=== PATIENT | male | born 1960 | race Two or more races ===

== ENCOUNTER 2016-12-16 11:17 | Emergency (ER) | payer OTHER ==
[2016-12-16 11:22] VITALS: BP 136/70; PULSE 96; TEMP 97.9; BMI 35.6
--- NOTE | 2016-12-16 13:31 | PDOC ---
History of Present Illness - General Chief Complaint: Cold Symptoms Stated Complaint: SORE THROAT, COUGH Time Seen by Provider: 12/16/16 11:38 History Source: Patient - History of Present Illness Timing/Duration: reports: other Associated Symptoms: reports: cough. denies: fever/chills, shortness of breath , sore throat, wheezing Past History - Past Medical History Allergies/Adverse Reactions: Allergies Allergy/AdvReac Type Severity Reaction Status Date / Time No Known Allergies Allergy Verified 12/16/16 11:22 Home Medications: Ambulatory Orders Benzonatate [Tessalon Pearls -] 100 mg PO TID #21 capsule 12/16/16 Hypercholesterolemia: Yes - Psycho/Social/Smoking Cessation Hx Suicidal Ideation: No Smoking History: Never smoked Information on smoking cessation initiated: No Hx Alcohol Use: No Drug/Substance Use Hx: No Substance Use Type: None Review of Systems - Review of Systems Constitutional: No: Chills, Fever, Unintentional Wgt. Loss Respiratory: Yes: Cough. No: Shortness of Breath, Wheezing, Hemoptysis Cardiac (ROS): No: Chest Pain *Physical Exam - Vital Signs Last Vital Signs Temp Pulse Resp BP Pulse Ox 97.9 F 96 H 18 136/70 99 12/16/16 11:20 12/16/16 11:20 12/16/16 11:20 12/16/16 11:20 12/16/16 11:20 - Physical Exam General Appearance: Yes: Appropriately Dressed. No: Apparent Distress HEENT: positive: Normal Voice Neck: positive: Supple. negative: Lymphadenopathy (R), Lymphadenopathy (L) Respiratory/Chest: positive: Lungs Clear, Normal Breath Sounds. negative: Respiratory Distress Cardiovascular: positive: Regular Rate, S1, S2 Integumentary: positive: Dry, Warm Neurologic: positive: Fully Oriented, Alert, Normal Mood/Affect ED Treatment Course - RADIOLOGY Radiology Studies Ordered: Category Date Time Status CHEST PA & LAT [RAD] Stat Radiology 12/16/16 13:26 Ordered Medical Decision Making - Medical Decision Making 12/16/16 13:27 56-year-old male, history of hyperlipidemia, here with cough 4 months. States cough mostly nonproductive, but over the past several days has been coughing up yellow sputum. Denies any shortness of breath, hemoptysis, night sweat, weight loss, fever or chills. No history of tobacco use and no exposure to active TB. Denies recent travel. For unclear reasons. Has not been to his see his doctor for evaluation. Not taking anything for his cough. Patient well- appearing and stable with unremarkable exam. Patient requesting chest x-ray today though aware that there is a very low chance of an acute process such as pneumonia. Etiology of cough unclear, ?viral, no h/o gasritis/GERD and not on a MIKA. Anticipate dc with Reilly Floyd and encourage PMD follow-up 12/16/16 13:29 12/16/16 13:30 12/16/16 13:57 CXR neg. Pt discharged to f/u with PMD 12/16/16 13:58 *DC/Admit/Observation/Transfer Diagnosis at time of Disposition: Cough - Discharge Dispostion Disposition: HOME Condition at time of disposition: Good - Prescriptions Prescriptions: Benzonatate [Tessalon Pearls -] 100 mg PO TID #21 capsule - Referrals Referrals: Juan José Sykes MD [Primary Care Provider] - - Patient Instructions Printed Discharge Instructions: Cough Additional Instructions: Take meds as directed and follow up with your PMD if cough persists
== END 2016-12-16 14:05 | disposition home or self-care (01) ==
LOC: JERFT 11:17
DX: R05 Cough (principal)
CPT/HCPCS: 71020-TC; 99281-25

== ENCOUNTER 2017-03-29 15:56 | Emergency (ER) | payer OTHER ==
[2017-03-29 16:20] VITALS: BMI 36.0
--- NOTE | 2017-03-29 17:47 | PDOC ---
History of Present Illness - General Chief Complaint: Shortness of Breath Stated Complaint: ACID REFLUX Time Seen by Provider: 03/29/17 17:33 History Source: Patient - History of Present Illness Presenting Symptoms: Chest Pain Timing/Duration: reports: intermittent Severity/Quality: reports: mild Past History - Past Medical History Allergies/Adverse Reactions: Allergies Allergy/AdvReac Type Severity Reaction Status Date / Time No Known Allergies Allergy Verified 03/29/17 16:16 Home Medications: Ambulatory Orders Benzonatate [Tessalon Pearls -] 100 mg PO TID #21 capsule 12/16/16 Hypercholesterolemia: Yes - Psycho/Social/Smoking Cessation Hx Suicidal Ideation: No Smoking History: Never smoked Hx Alcohol Use: No Drug/Substance Use Hx: No Substance Use Type: None Review of Systems - Review of Systems Constitutional: No: Fever Respiratory: Yes: Shortness of Breath. No: Cough Cardiac (ROS): Yes: Chest Pain. No: Lightheadedness, Palpitations, Syncope ABD/GI: No: Constipated, Diarrhea, Nausea, Vomiting *Physical Exam - Vital Signs Last Vital Signs Temp Pulse Resp BP Pulse Ox 98 F 73 19 136/90 99 03/29/17 16:17 03/29/17 16:17 03/29/17 16:17 03/29/17 16:17 03/29/17 16:17 - Physical Exam General Appearance: Yes: Appropriately Dressed. No: Apparent Distress HEENT: positive: Normal Voice Neck: positive: Supple Respiratory/Chest: positive: Lungs Clear, Normal Breath Sounds. negative: Respiratory Distress Cardiovascular: positive: Regular Rate, S1, S2 Gastrointestinal/Abdominal: positive: Tender (minimally to LUQ), Soft Extremity: positive: Normal Inspection Integumentary: positive: Dry, Warm Neurologic: positive: Fully Oriented, Alert, Normal Mood/Affect ED Treatment Course - RADIOLOGY Radiology Studies Ordered: Category Date Time Status CHEST X-RAY PORTABLE* [RAD] Stat Radiology 03/29/17 17:49 Taken - Medications Given in the ED: ED Medications Discontinued Medications Generic Name Dose Route Start Last Admin Trade Name Freq PRN Reason Stop Dose Admin Al Hydroxide/Mg Hydroxide 30 ml 03/29/17 17:50 03/29/17 18:04 Mylanta Suspension - PO 03/29/17 17:51 30 ml ONCE ONE Administration Famotidine/Sodium Chloride 50 mls @ 100 mls/hr 03/29/17 17:50 03/29/17 18:05 Pepcid 20 Mg Premixed Ivpb - IVPB 03/29/17 18:19 100 mls/hr ONCE ONE Administration Medical Decision Making - Medical Decision Making 03/29/17 17:41 56-year-old male history of hyperlipidemia, gastritis, here c/o CP and shortness of breath. Patient states symptoms started approximately 2 hours ago. Described as pressure-like pain to mid and L chest and felt like he couldn't breathe. States symptoms is intermittent with no exacerbating or alleviating factors. Had similar symptoms 2 weeks ago that resolved on its own and did not come to ED as per patient. Denies any diaphoresis, palpitations, nausea, vomiting, leg pain or swelling. States he had a negative stress test last year at [facility]. No obvious RF for DVT/PE See exam CP w/ SOB today Neg stress last yr per pt Not great story for ACS, ?GI etiology given ttp to LUQ on exam (does have h/o gastritis-not on meds), less likely PE, dissection or PNA -ekg -cxr -labs -GI cocktail and reassess 03/29/17 17:48 03/29/17 17:48 03/29/17 17:57 03/29/17 18:39 EKG unremarkable as d/w ED attg. Plan is to get serial trop, rpt ekg at some point and reassess after GI cocktail 03/29/17 19:00 Signed out to CELSA Medina
[2017-03-29] MEDS ORDERED: FAMOTIDINE 20 MG/50 ML IVPB 50 ML IVPB ONE ×2 (17:50→18:03)
[2017-03-29] MEDS ORDERED: MAG HYDROX/AL HYDROX/SIMETH 355 ML ORAL.SUSP PO ONE (17:50)
[2017-03-29] MEDS ORDERED: MAG HYDROX/AL HYDROX/SIMETH 30 ML UNIT-DOSE CUP ONE (18:03)
[2017-03-29 18:53] LABS: BASOPHIL 0.7 % (0-2.0); EOSINOPHIL 1.8 % (0-4.5); MCH 25.4 pg (25.7-33.7); MEAN CELL VOLUME 76.8 fl (80-96); MEAN PLT VOLUME 8.6 fl (7.5-11.1); NEUTROPHILS 66.2 % (42.8-82.8); PLATELET COUNT 227 K/MM3 (134-434); RDW 14.4 % (11.9-15.9); WHITE BLOOD COUNT 8.4 K/mm3 (4.0-10.0)
[2017-03-29 19:03] LABS: ALBUMIN 3.9 g/dl (3.4-5.0); ALK PHOS 72 U/L (45-117); ANION GAP 7 (8-16); BILIRUBIN,TOTAL 0.4 mg/dL (0.2-1.0); CALCIUM 8.5 mg/dL (8.5-10.1); CO2 27 mmol/L (21-32); CPK 239 IU/L (39-308); CREATININE 0.8 mg/dL (0.7-1.3); GLUCOSE,RANDOM 98 mg/dL (74-106); SGOT/AST 21 U/L (15-37); SGPT/ALT 37 U/L (12-78); TOT PROT 7.3 g/dl (6.4-8.2)
[2017-03-29 19:13] LABS: URINE APPEARANCE CLEAR; URINE BILIRUBIN NEGATIVE (NEGATIVE); URINE BLOOD NEGATIVE (NEGATIVE); URINE COLOR STRAW; URINE GLUCOSE (UA) NEGATIVE (NEGATIVE); URINE KETONE NEGATIVE (NEGATIVE); URINE LEUK ESTERASE NEGATIVE (NEGATIVE); URINE NITRITE NEGATIVE (NEGATIVE); URINE PROTEIN NEGATIVE (NEGATIVE); URINE UROBILINOGEN NEGATIVE mg/dL (0.2-1.0)
--- NOTE | 2017-03-29 19:46 | PDOC ---
*Physical Exam - Vital Signs Last Vital Signs Temp Pulse Resp BP Pulse Ox 98 F 73 19 136/90 99 03/29/17 16:17 03/29/17 16:17 03/29/17 16:17 03/29/17 16:17 03/29/17 16:17 Heart Score/ECG Review - History History: Slightly suspicious - Electrocardiogram EKG: Normal - Age Age: 45-65 - Risk Factors Risk Factors Heart Score: Yes Hx Hypercholesterolemia Based on the list above the patient has:: 1-2 risk factors - Troponin Troponin: </= normal limit - Score Heart Score - Total: 2 - ECG Impressions Comment:: 03/29/17 19:48 EKG with no NEREIDA/STDs, no TWIs, intervals wnl, axis wnl ED Treatment Course - LABORATORY CBC & Chemistry Diagram: 03/29/17 18:35 03/29/17 18:35 - ADDITIONAL ORDERS Additional order review: Laboratory Results 03/29/17 03/29/17 19:00 18:35 Sodium 138 Potassium 4.0 Chloride 104 Carbon Dioxide 27 Anion Gap 7 L BUN 16 Creatinine 0.8 Creat Clearance w eGFR > 60 Random Glucose 98 Calcium 8.5 Total Bilirubin 0.4 AST 21 ALT 37 Alkaline Phosphatase 72 Creatine Kinase 239 Total Protein 7.3 Albumin 3.9 Urine Color Straw Urine Appearance Clear Urine pH 6.0 Urine Protein Negative Urine Glucose (UA) Negative Urine Ketones Negative Urine Blood Negative Urine Nitrite Negative Urine Bilirubin Negative Urine Urobilinogen Negative Ur Leukocyte Esterase Negative 03/29/17 18:35 RBC 5.29 MCV 76.8 L MCHC 33.0 RDW 14.4 MPV 8.6 Neutrophils % 66.2 Lymphocytes % 24.3 Monocytes % 7.0 Eosinophils % 1.8 Basophils % 0.7 - Medications Given in the ED: ED Medications Discontinued Medications Generic Name Dose Route Start Last Admin Trade Name Freq PRN Reason Stop Dose Admin Al Hydroxide/Mg Hydroxide 30 ml 03/29/17 17:50 03/29/17 18:04 Mylanta Suspension - PO 03/29/17 17:51 30 ml ONCE ONE Administration Famotidine/Sodium Chloride 50 mls @ 100 mls/hr 03/29/17 17:50 03/29/17 18:05 Pepcid 20 Mg Premixed Ivpb - IVPB 03/29/17 18:19 100 mls/hr ONCE ONE Administration Medical Decision Making - Medical Decision Making 03/29/17 19:49 Agree with PA/EMPLOYMENT CLERK's evaluation, assessment, and plan. 56M with h/o gastritis, HLD presenting with chest pain + SOB, now improved s/p GI meds. Likely gastritis-related. Will r/o ACS with serial troponins and EKGs. - f/u 2nd trop, EKG *DC/Admit/Observation/Transfer Diagnosis at time of Disposition: Chest pain Qualifiers: Chest pain type: other chest pain Qualified Code(s): R07.89 - Other chest pain - Referrals Referrals: Juan José Sykes MD [Primary Care Provider] - - Attestations Physician Attestion: 03/29/17 19:51 I, Dr. Dick Cadena MD, attest that this document has been prepared under my direction and personally reviewed by me in its entirety. I further attest, that it accurately reflects all work, treatment, procedures and medical decision -making performed by me.
[2017-03-29 20:12] LABS: TROPONIN I < 0.02 ng/ml (0.00-0.05)
--- NOTE | 2017-03-29 20:34 | PDOC ---
*Physical Exam - Vital Signs Last Vital Signs Temp Pulse Resp BP Pulse Ox 98 F 73 19 136/90 99 03/29/17 16:17 03/29/17 16:17 03/29/17 16:17 03/29/17 16:17 03/29/17 16:17 - Physical Exam Comments: 03/29/17 19:18 Sign-out received from outgoing ER provider Gilda. Pt interviewed and examined. Ancillary studies reviewed. Awaiting initial troponin. 03/29/17 20:20 First trop negative. Will repeat at 10pm as well as repeat EKG for SHAUNA. 03/29/17 21:08 Patient reassessed. At this time he is sitting comfortably in bed and eating a sandwich. Patient reports feeling better. Awaiting repeat trop. 03/29/17 22:17 Repeat EKG - NSR. Patient continues to be asymptomatic at this time. Advised patient to f/u with primary care doctor and of signs and symptoms for return to ER; patient verbalized understanding and agrees to plan. ED Treatment Course - LABORATORY CBC & Chemistry Diagram: 03/29/17 18:35 03/29/17 18:35 - ADDITIONAL ORDERS Additional order review: Laboratory Results 03/29/17 03/29/17 19:00 18:35 Sodium 138 Potassium 4.0 Chloride 104 Carbon Dioxide 27 Anion Gap 7 L BUN 16 Creatinine 0.8 Creat Clearance w eGFR > 60 Random Glucose 98 Calcium 8.5 Total Bilirubin 0.4 AST 21 ALT 37 Alkaline Phosphatase 72 Creatine Kinase 239 Creatine Kinase Index 0.4 CK-MB (CK-2) 1.126 Troponin I < 0.02 Total Protein 7.3 Albumin 3.9 Urine Color Straw Urine Appearance Clear Urine pH 6.0 Urine Protein Negative Urine Glucose (UA) Negative Urine Ketones Negative Urine Blood Negative Urine Nitrite Negative Urine Bilirubin Negative Urine Urobilinogen Negative Ur Leukocyte Esterase Negative 03/29/17 18:35 RBC 5.29 MCV 76.8 L MCHC 33.0 RDW 14.4 MPV 8.6 Neutrophils % 66.2 Lymphocytes % 24.3 Monocytes % 7.0 Eosinophils % 1.8 Basophils % 0.7 - Medications Given in the ED: ED Medications Discontinued Medications Generic Name Dose Route Start Last Admin Trade Name Freq PRN Reason Stop Dose Admin Al Hydroxide/Mg Hydroxide 30 ml 03/29/17 17:50 08/05/17 18:04 Mylanta Suspension - PO 03/29/17 17:51 30 ml ONCE ONE Administration Famotidine/Sodium Chloride 50 mls @ 100 mls/hr 03/29/17 17:50 03/29/17 18:05 Pepcid 20 Mg Premixed Ivpb - IVPB 03/29/17 18:19 100 mls/hr ONCE ONE Administration *DC/Admit/Observation/Transfer Diagnosis at time of Disposition: Chest pain Qualifiers: Chest pain type: other chest pain Qualified Code(s): R07.89 - Other chest pain - Discharge Dispostion Disposition: HOME Condition at time of disposition: Improved Admit: No - Referrals Referrals: Juan José Sykes MD [Primary Care Provider] - - Patient Instructions Printed Discharge Instructions: DI for Chest Pain Additional Instructions: Please follow up with your primary care doctor next week. If you experience any new chest pain, shortnes of breath, palpitations, or any other new or worsening symptoms, please return to the ER. - Post Discharge Activity
[2017-03-29 22:46] LABS: CPK 243 IU/L (39-308); TROPONIN I < 0.02 ng/ml (0.00-0.05)
[2017-03-29 23:29] VITALS: BP 134/82; PULSE 70; TEMP 97.8
--- NOTE | 2017-03-31 13:42 | EKG ---
Test Reason : Blood Pressure : / mmHG Vent. Rate : 068 BPM Atrial Rate : 068 BPM P-R Int : 182 ms QRS Dur : 086 ms QT Int : 412 ms P-R-T Axes : 044 -17 024 degrees QTc Int : 438 ms NORMAL SINUS RHYTHM MINIMAL VOLTAGE CRITERIA FOR LVH, MAY BE NORMAL VARIANT BORDERLINE ECG WHEN COMPARED WITH ECG OF 29-MAR-2017 18:33, NO SIGNIFICANT CHANGE WAS FOUND Confirmed by GERRI BOBBY MD ([id number]) on 03/31/2017 1:42:22 PM Referred By: Confirmed By:GERRI BOBBY MD
--- NOTE | 2017-03-31 13:44 | EKG ---
Test Reason : Blood Pressure : / mmHG Vent. Rate : 065 BPM Atrial Rate : 065 BPM P-R Int : 184 ms QRS Dur : 084 ms QT Int : 420 ms P-R-T Axes : 034 -18 007 degrees QTc Int : 436 ms NORMAL SINUS RHYTHM MINIMAL VOLTAGE CRITERIA FOR LVH, MAY BE NORMAL VARIANT BORDERLINE ECG NO PREVIOUS ECGS AVAILABLE Confirmed by GERRI BOBBY MD ([id number]) on 03/31/2017 1:44:04 PM Referred By: Confirmed By:GERRI BOBBY MD
== END 2017-03-29 23:29 | disposition home or self-care (01) ==
LOC: JER 15:56
PROC: 3E033GC Introduction of Other Therapeutic Substance into Peripheral Vein, Percutaneous Approach (ICD-10-PCS; principal; 2017-03-29)
DX: R07.89 Other chest pain (principal); E78.5 Hyperlipidemia, unspecified
CPT/HCPCS: 36415; 71010-TC; 80053; 81003; 82553; 84484; 85025; 93005; 93010; 96365; 99282-25